=== PATIENT | female | born 1990 | race Caucasian/White ===

== ENCOUNTER 2018-03-01 20:28 | Emergency (ER) | payer MEDICAID ==
[~2018-03-01] VITALS: Ht 167.6 cm; Wt 59.5 kg
[~2018-03-01 20:28] MED LIST: ALEVE 220MG220 MG PO; AMBIEN 10MG10 MG PO; CEPHALEXIN500 M1 PO; CIPRO 250MG TA250 MG PO; COLACE 100100 MG/CAP PO; CRANBERRY1 CAP PO; DESYREL DIVIDO150 M1 PO; DIAMOX 250MG250 MG PO; DIAMOX SEQUELS500 M1 PO; FLEXERIL 1010 MG/TAB PO; MOTRIN 600600 MG/TAB PO; MULTIPLE VITAMI1 CAP PO; NORCO 325 MG-7.1 TAB PO; PERCOCET 325 MG1 TA2 PO; PHENERGAN 25 TA25 MG PO; PRENATAL1 TA1 PO; PRIL40 PO; PRILOSEC 20MG20 MG PO; PROAIR HFA0.09 MG/AC IH; VITAMIN C PURE500 M1 PO; XANAX 0.5MG0.5 MG PO; ZOLOFT 100MG100 MG PO; ZOLOFT 50MG50 MG
[2018-03-01 20:30] VITALS: TEMP 97.9
[2018-03-01 20:42] VITALS: BP 137/89
[2018-03-01] MEDS ORDERED: DIAMOX SEQUELS500 M1 PO (20:47)
[2018-03-01 21:35] VITALS: PULSE 83
== END 2018-03-01 21:35 | disposition home or self-care (01) ==
LOC: COL.ER 20:28
DX: T83.84XA Pain due to genitourinary prosthetic devices, implants and grafts, initial encounter (principal); T83.83XA Hemorrhage due to genitourinary prosthetic devices, implants and grafts, initial encounter